=== PATIENT | male | born 1965 | race Two or more races ===

== ENCOUNTER 2024-04-20 12:23 | Emergency (ER) | payer OTHER ==
[~2024-04-20] VITALS: Ht 172.7 cm; Wt 65.8 kg
[2024-04-20 12:40] VITALS: BP 141/100; TEMP 98.3
[2024-04-20 13:51] VITALS: O2SAT 98
== END 2024-04-20 13:53 | disposition home or self-care (01) ==
LOC: ER 12:23
DX: S82.51XA Displaced fracture of medial malleolus of right tibia, initial encounter for closed fracture (principal); W22.8XXA Striking against or struck by other objects, initial encounter; Y93.9 Activity, unspecified; Y92.89 Other specified places as the place of occurrence of the external cause; Y99.9 Unspecified external cause status
CPT/HCPCS: 73610-TC